=== PATIENT | male | born 1935 | race Caucasian/White ===

== ENCOUNTER 2016-12-23 15:28 | Inpatient (IN) ==
[2016-12-23] MEDS ORDERED: Nitroglycerin 0.4 MG TAB.SUBL SL PRN (16:59)
[2016-12-23] MEDS ORDERED: Ipratropium/Albuterol Neb 3 ML IH PRN (16:59)
[2016-12-23] MEDS: Acetaminophen 325 MG TABLET PO PRN ×2 (18:44→23:38)
[2016-12-23] MEDS: Isosorbide MONOnitrate (24 HR) 30 MG TAB.ER.24H PO SCH (20:50)
[2016-12-23] MEDS ORDERED: Levofloxacin 750 MG/150 ML 750 MG/150 ML BAG IVPB SCH (21:00)
[2016-12-23] MEDS ORDERED: NON-FORMULARY MEDICATION 1 EACH EACH (Levofloxacin 750 Mg/150 Ml 750 MG) IVPB SCH (21:00)
[2016-12-24] MEDS: Acetaminophen 325 MG TABLET PO PRN (06:00)
[2016-12-24 06:08] LABS: Basophils # 0.1 K/mcL (0.0-0.2); Basophils % 0.5 %; Eosinophils # 0.4 K/mcL (0.0-0.6); Eosinophils % 4.2 %; Hematocrit 38.7 % (37.5-50.1); Hemoglobin 12.6 g/dL (12.9-16.9); Immature Granulocytes % 0.6 % (0-4); Lymphocytes % 20.4 %; Mean Corpuscular HGB Conc 32.6 g/dL (31.6-35.5); Mean Corpuscular Hemoglobin 28.1 pg (28.0-33.3); Mean Corpuscular Volume 86.2 fL (83.0-100.0); Monocytes # 0.9 K/mcL (0.0-1.3); Monocytes % 9.1 %; Neutrophils # 6.4 K/mcL (1.6-8.9); Platelet Count 224 K/mcL (140-400); Red Blood Count 4.49 M/mcL (4.19-5.50); Segmented Neutrophils % 65.2 %
[2016-12-24 06:15] LABS: INR 1.1; Prothrombin Time 12.1 Seconds (9.4-12.1)
[2016-12-24 06:18] LABS: Activated Partial Thrombo Time 26.3 Seconds (26.0-36.0)
[2016-12-24 06:25] LABS: BUN/Creatinine Ratio 23 (6-26); Blood Urea Nitrogen 21 mg/dL (8-26); Calcium 9.6 mg/dL (8.6-10.8); Carbon Dioxide 27 mEq/L (19-29); Chloride 103 mEq/L (98-109); Glucose 104 mg/dL (70-99); Osmolality,Calculated 291 (280-300); Potassium 4.6 mEq/L (3.5-4.5); Sodium 139 mEq/L (136-145); eGFR For African Americans > 60 (> 60); eGFR For Non-African Americans > 60 (> 60)
[2016-12-24] MEDS: Metoprolol XL (24 HR) Succ 50 MG TAB.ER.24H PO SCH (10:14)
[2016-12-24] MEDS: Cyanocobalamin (B-12) 1,000 MCG TABLET PO SCH (10:14)
[2016-12-24] MEDS: Cholecalciferol (D-3) 1,000 UNIT TABLET PO SCH (10:14)
[2016-12-24] MEDS: Aspirin Enteric Coated 81 MG Tablet PO SCH (10:14)
--- NOTE | 2016-12-24 11:07 | Internal Med History&Physical ---
Date of Encounter: 12/24/16 Time of Encounter: 10:35 Assessment and Plan (1) Osteomyelitis Current visit: No Status: Acute Will continue with IV Levaquin and add lactobacillus. Will also add gabapentin for pain control and change Tylenol to scheduled Qualifiers: Osteomyelitis type: acute hematogenous Osteomyelitis location: foot Laterality: right Qualified Code(s): M86.071 - Acute hematogenous osteomyelitis, right ankle and foot (2) Anemia Current visit: Yes Status: Acute We will order anemia testing in a.m. Qualifiers: Anemia type: unspecified type Qualified Code(s): D64.9 - Anemia, unspecified (3) HTN (hypertension) Current visit: No Status: Chronic Continue Toprol and Zestril. Qualifiers: Hypertension type: essential hypertension Qualified Code(s): I10 - Essential (primary) hypertension Internal Medicine - H&P: HPI Chief complaint: Right foot ulcer/osteomyelitis Admitted From: Hospital to Hospital Transfer Plans for Post Hospital Care: Home History of present illness: Mr. Medina is a 81 year old male who was transferred to [facility] swing bed following a December 17 [facility] hospitalization for right foot ulcer. 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 There was high-grade complex partial tearing of the Achilles tendon insertion. He was seen by podiatry and infectious disease. Deep soft tissue culture showed no growth. He was initially given Zosyn but discharged on IV Levaquin to complete a 6 week course. He states he will only be at [facility] 3-5 days to have therapy to improve his walking ability and allow family to build a wheelchair ramp and install handicap accessories in the home. He will then return home and complete IV antibiotic course at home. 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 He had previous right foot surgery in 1992. Denies gout or other bone joint or muscle disorders. Past Med Surg Social Fam HX - Past Medical History Medical history: atrial fibrillation, diabetes, GERD, hyperlipidemia, hypertension, other Psychiatric history: no psych history - Past Surgical History Surgical History: cataract, coronary bypass (CABG), herniorrhaphy, orthopedic, other - Social History Smoking Status: Former smoker Smokeless Tobacco Status: Yes Alcohol use: occasionally Drug use: none - Family History Father Family Member Ethnicity: Non- Living Status: Hx Family Cancer: Yes Mother Family Member Ethnicity: Non- Living Status: Hx Family Respiratory Disorders: Yes (Emphysema) Hx Family Cancer: Yes (Breast) Brother Family Member Ethnicity: Non- Living Status: Hx Family Cardiac Disorders: Yes (CAD) Sister Family Member Ethnicity: Non- Living Status: Hx Family Cardiac Disorders: Yes (CAD) Hx Family Endocrine Disorder: Yes (DM) Internal Medicine - H&P: Meds Aspirin [Adult Low Dose Aspirin EC] 81 mg PO QAM 04/01/15 [History] Atorvastatin Calcium [Lipitor] 80 mg PO HS 04/01/15 [History] Clopidogrel [Plavix] 75 mg PO HS 04/01/15 [History] Isosorbide MONOnitrate (24 HR) [Imdur] 30 mg PO HS 04/01/15 [History] Lisinopril [Zestril] 10 mg PO HS 04/01/15 [History] Metformin HCl [Glucophage] 850 mg PO BID 04/01/15 [History] Nitroglycerin [Nitrostat] 0.4 mg SL Q5M PRN 04/01/15 [History] Cholecalciferol (Vitamin D3) [Vitamin D3] 1,000 unit PO QAM 04/16/15 [History] Metoprolol XL (24 HR) Succ [Toprol Xl] 50 mg PO DAILY 12/17/16 [History] Acetaminophen [Tylenol] 650 mg PO Q6HR PRN #30 tablet 12/22/16 [Rx] Calcium Carbonate [Tums] 500 mg PO QAM tab.chew 12/22/16 [Rx] Cyanocobalamin (B-12) [Vitamin B12] 1,000 mcg PO QAM tablet 12/22/16 [Rx] Ipratropium/Albuterol Neb [Duoneb] 3 ml IH [id number] PRN #30 inhsol 12/22/16 [Rx] Levofloxacin 750 MG/150 ML [Levaquin Premix 750mg/150 mL] 750 mg IVPB DAILY 20 Days #20 bag 12/22/16 [Rx] 3 Allergy/AdvReac Type Severity Reaction Status Date / Time hydrocodone [From [place]] AdvReac Vomiting Verified 12/17/16 12:26 Oxycodone AdvReac Vomiting Verified 12/17/16 12:26 All Systems PM: A 10-system review of systems was performed and is negative for pertinent findings except as documented above in the HPI. Review of systems: Gen.: He states his weight has been stable the past few months Cardiovascular: He has history of hypertension. He has known ASHD status post GA 2003 followed by three-vessel CABG surgery. He has had 4 heart caths with most recent one February 2015. He has had 2 stents placed. An echocardiogram showed LVEF of 50-55%. There was mild diastolic dysfunction with E/A ratio 0.7. There was LAE at 4.70 cm. There was increased thickness of the interventricular septum and posterior wall at 1.90 and 1.40 cm respectively. There was with estimated aortic valve area 1.40 cm. He has history of atrial fibrillation but was in sinus rhythm on 12/20/2016 EKG. There is no history of DVT or pulmonary embolus Respiratory: He smoked between age [age] approximately 36 years up to 1 pack per day. He has a diagnosis of COPD but does not use home oxygen. GI: He denies disorders of his liver gallbladder or exocrine pancreas. He has had abdominal surgery with mesh placement. : He has had kidney stones on 2 occasions in the past. He had acute renal insufficiency during his recent [facility] stay. He denies chronic kidney disease or other disorders of his kidney bladder or prostate Neurologic: He denies large distribution strokes or seizures. Endocrine: He was diagnosed with DM 2 in 2003. He has hyperlipidemia but denies thyroid disease. Hematology/oncology: He has anemia but was unaware of this. He denies internal malignancies. Psychiatric: He has feelings of depression but does not take medication at this time. Musk skeletal: As per history of present illness - Constitutional Vitals: Temp Pulse Resp BP Pulse Ox 97.8 F 94 18 167/92 95 12/24/16 07:00 12/24/16 07:00 12/24/16 07:00 12/24/16 07:00 12/24/16 07:00 Exam: Gen.: He is a well-developed well-nourished male lying in bed who appears in no acute distress HEENT: Head is atraumatic and normocephalic. Eyes: EOMI. There is no scleral icterus. Mouth: Mucosa is moist. Neck: Supple and nontender. There is no thyromegaly or adenopathy noted. Heart: Regular without murmurs gallops or ectopics. Lungs: No wheezes or crackles are heard. Abdomen: Soft and nontender. No masses or guarding are noted. Extremities: There is no cyanosis edema or clubbing noted. The right foot is wrapped in gauze which I did not unwrap. There is no edema of his lower legs. Neurologic: Mental status: He is talkative and a good historian. Cranial nerves : Smile is symmetric. Forehead wrinkles bilaterally. Tongue protrudes midline. EOMI. Motor: There is no pronator drift. Cerebellar: Finger to nose is intact bilaterally. Skin: Warm and dry. He has seborrheic dermatitis of his face Internal Med - H&P Results - Labs CBC & Chem 7: 12/24/16 04:20 12/24/16 04:20 Labs: Short CBC 12/24/16 Range/Units 04:20 WBC 9.8 (4.3-11.1) K/mcL Hgb 12.6 L (12.9-16.9) g/dL Hct 38.7 (37.5-50.1) % Plt Count 224 (140-400) K/mcL Neutrophils # 6.4 (1.6-8.9) K/mcL BMP 12/24/16 04:20 Sodium 139 Potassium 4.6 H Chloride 103 Carbon Dioxide 27 BUN 21 Creatinine 0.91 Glucose 104 H Calcium 9.6
[2016-12-24] MEDS: Gabapentin 100 MG CAPSULE PO SCH ×2 (15:20→20:43)
[2016-12-24] MEDS: Levofloxacin 750 MG/150 ML 750 MG/150 ML BAG IVPB SCH (20:40)
[2016-12-24] MEDS: Isosorbide MONOnitrate (24 HR) 30 MG TAB.ER.24H PO SCH (20:43)
[2016-12-24] MEDS: Lactobacillus 1 EACH CAP.SPRINK PO SCH (20:44)
[2016-12-25] MEDS: *HR* Metformin 850 MG TABLET PO SCH ×3 (03:32→20:41)
[2016-12-25] MEDS: Lactobacillus 1 EACH CAP.SPRINK PO SCH ×2 (09:43→20:40)
[2016-12-25] MEDS: Cholecalciferol (D-3) 1,000 UNIT TABLET PO SCH (09:43)
[2016-12-25] MEDS: Gabapentin 100 MG CAPSULE PO SCH ×3 (09:44→20:41)
[2016-12-25] MEDS: Aspirin Enteric Coated 81 MG Tablet PO SCH (09:44)
[2016-12-25] MEDS: Metoprolol XL (24 HR) Succ 50 MG TAB.ER.24H PO SCH (09:44)
[2016-12-25] MEDS: Cyanocobalamin (B-12) 1,000 MCG TABLET PO SCH (09:44)
[2016-12-25 11:11] LABS: % Iron Saturation 29 % (20-55); Iron 84 mcg/dL (65-175); Transferrin 206 mg/dL (174-364)
[2016-12-25 11:33] LABS: Ferritin 43 ng/ml (22-275)
[2016-12-25 11:46] LABS: Folate 6.6 ng/mL (7.0-31.4)
[2016-12-25] MEDS: Isosorbide MONOnitrate (24 HR) 30 MG TAB.ER.24H PO SCH (20:39)
[2016-12-25] MEDS: Levofloxacin 750 MG/150 ML 750 MG/150 ML BAG IVPB SCH (20:41)
[2016-12-26] MEDS: Lactobacillus 1 EACH CAP.SPRINK PO SCH ×2 (09:09→22:08)
[2016-12-26] MEDS: Aspirin Enteric Coated 81 MG Tablet PO SCH (09:09)
[2016-12-26] MEDS: *HR* Metformin 850 MG TABLET PO SCH ×2 (09:09→22:13)
[2016-12-26] MEDS: Gabapentin 100 MG CAPSULE PO SCH ×3 (09:09→22:07)
[2016-12-26] MEDS: Metoprolol XL (24 HR) Succ 50 MG TAB.ER.24H PO SCH (09:10)
[2016-12-26] MEDS: Cyanocobalamin (B-12) 1,000 MCG TABLET PO SCH (09:10)
[2016-12-26] MEDS: Cholecalciferol (D-3) 1,000 UNIT TABLET PO SCH (09:10)
--- NOTE | 2016-12-26 11:26 | Internal Med Progress Note ---
Date of Encounter: 12/26/16 Time of Encounter: 11:15 - Assessment and plan (1) Osteomyelitis Current Visit: No Status: Acute Assessment and plan: December 26. Continue IV Levaquin and lactobacillus. Continue gabapentin and Tylenol for pain control. Qualifiers: Osteomyelitis type: acute hematogenous Osteomyelitis location: foot Laterality: right Qualified Code(s): M86.071 - Acute hematogenous osteomyelitis, right ankle and foot (2) Anemia Current Visit: Yes Status: Acute Assessment and plan: December 26. Folate level was minimally low at 6.6. Will add folic acid supplement. Qualifiers: Anemia type: unspecified type Qualified Code(s): D64.9 - Anemia, unspecified (3) HTN (hypertension) Current Visit: No Status: Chronic Assessment and plan: December 26. Continue Toprol and Zestril. Qualifiers: Hypertension type: essential hypertension Qualified Code(s): I10 - Essential (primary) hypertension - Subjective Interval history: December 26. He has no new complaints and feels better overall. - Constitutional Vitals: Temp Pulse Resp BP Pulse Ox 97.6 F 85 18 115/67 95 12/26/16 07:16 12/26/16 07:16 12/26/16 07:16 12/26/16 07:16 12/26/16 07:16 Exam: He is resting comfortably in a chair at bedside. His affect is bright and cheerful. I reviewed his medications and lab results. Internal Medicine: Result - Labs CBC & Chem 7: 12/24/16 04:20 12/24/16 04:20 - ABG Interpretation ABG results: PT/INR, D-dimer PT 12.1 Seconds (9.4-12.1) 12/24/16 04:20 Consult Discharge Plan - Plan Referrals: Christiano Hopkins DO [Primary Care Provider] - 1 week
[2016-12-26] MEDS: Isosorbide MONOnitrate (24 HR) 30 MG TAB.ER.24H PO SCH (22:07)
[2016-12-26] MEDS: Levofloxacin 750 MG/150 ML 750 MG/150 ML BAG IVPB SCH (22:09)
[2016-12-27 05:38] LABS: Basophils # 0.1 K/mcL (0.0-0.2); Basophils % 0.4 %; Eosinophils # 0.6 K/mcL (0.0-0.6); Hematocrit 38.9 % (37.5-50.1); Hemoglobin 12.6 g/dL (12.9-16.9); Lymphocytes # 3.1 K/mcL (0.6-4.6); Lymphocytes % 24.7 %; Mean Corpuscular HGB Conc 32.4 g/dL (31.6-35.5); Mean Corpuscular Hemoglobin 27.9 pg (28.0-33.3); Mean Corpuscular Volume 86.3 fL (83.0-100.0); Mean Platelet Volume 10.9 fL (9.4-12.4); Monocytes % 7.7 %; Neutrophils # 7.8 K/mcL (1.6-8.9); Platelet Count 254 K/mcL (140-400); Red Blood Count 4.51 M/mcL (4.19-5.50); Red Cell Distribution Width 14.2 % (11.5-14.5); Segmented Neutrophils % 61.2 %
[2016-12-27 05:49] LABS: Blood Urea Nitrogen 27 mg/dL (8-26)
[2016-12-27 05:50] LABS: Creatine Kinase 71 Units/L (30-200)
[2016-12-27] MEDS: Gabapentin 100 MG CAPSULE PO SCH ×3 (10:20→22:14)
[2016-12-27] MEDS: Aspirin Enteric Coated 81 MG Tablet PO SCH (10:20)
[2016-12-27] MEDS: Cyanocobalamin (B-12) 1,000 MCG TABLET PO SCH (10:20)
[2016-12-27] MEDS: *HR* Metformin 850 MG TABLET PO SCH ×2 (10:20→22:17)
[2016-12-27] MEDS: Lactobacillus 1 EACH CAP.SPRINK PO SCH ×2 (10:20→22:14)
[2016-12-27] MEDS: Metoprolol XL (24 HR) Succ 50 MG TAB.ER.24H PO SCH (10:20)
[2016-12-27] MEDS: Cholecalciferol (D-3) 1,000 UNIT TABLET PO SCH (10:20)
[2016-12-27 11:43] LABS: C-Reactive Protein 6 mg/L (Less than 5)
--- NOTE | 2016-12-27 16:02 | Internal Med Progress Note ---
Date of Encounter: 12/27/16 Time of Encounter: 15:50 - Assessment and plan (1) Osteomyelitis Current Visit: No Status: Acute Assessment and plan: December 26. Continue IV Levaquin and lactobacillus. Continue gabapentin and Tylenol for pain control. December 27. Continue IV Levaquin to complete 6 week course in Hospital. Continue gabapentin and Tylenol. Qualifiers: Osteomyelitis type: acute hematogenous Osteomyelitis location: foot Laterality: right Qualified Code(s): M86.071 - Acute hematogenous osteomyelitis, right ankle and foot (2) Anemia Current Visit: Yes Status: Acute Assessment and plan: December 26. Folate level was minimally low at 6.6. Will add folic acid supplement. Qualifiers: Anemia type: unspecified type Qualified Code(s): D64.9 - Anemia, unspecified (3) HTN (hypertension) Current Visit: No Status: Chronic Assessment and plan: December 26. Continue Toprol and Zestril. Qualifiers: Hypertension type: essential hypertension Qualified Code(s): I10 - Essential (primary) hypertension - Subjective Interval history: December 26. He has no new complaints and feels better overall. December 27. He has no new complaints - Constitutional Vitals: Temp Pulse Resp BP Pulse Ox 97.8 F 96 16 111/72 99 12/27/16 06:37 12/27/16 06:37 12/27/16 06:37 12/27/16 06:37 12/27/16 13:58 Exam: He is sitting in a chair at bedside resting comfortably. His right calcaneal area shows an unstageable 0.6 cm x 3.2 cm skin defect. There is no surrounding erythema and no significant drainage. I reviewed his medications and lab results Internal Medicine: Result - Labs CBC & Chem 7: 12/27/16 05:25 12/27/16 05:25 Labs: Short CBC 12/27/16 Range/Units 05:25 WBC 12.7 H (4.3-11.1) K/mcL Hgb 12.6 L (12.9-16.9) g/dL Hct 38.9 (37.5-50.1) % Plt Count 254 (140-400) K/mcL Neutrophils # 7.8 (1.6-8.9) K/mcL BMP 12/27/16 05:25 BUN 27 H - ABG Interpretation ABG results: PT/INR, D-dimer PT 12.1 Seconds (9.4-12.1) 12/24/16 04:20 Consult Discharge Plan - Plan Referrals: Christiano Hopkins DO [Primary Care Provider] - 1 week
[2016-12-27] MEDS: Isosorbide MONOnitrate (24 HR) 30 MG TAB.ER.24H PO SCH (22:15)
[2016-12-27] MEDS: Levofloxacin 750 MG/150 ML 750 MG/150 ML BAG IVPB SCH (22:16)
[2016-12-28] MEDS: Gabapentin 100 MG CAPSULE PO SCH ×3 (16:02→22:16)
[2016-12-28] MEDS: Lactobacillus 1 EACH CAP.SPRINK PO SCH ×2 (16:03→22:13)
[2016-12-28] MEDS: Aspirin Enteric Coated 81 MG Tablet PO SCH (16:03)
[2016-12-28] MEDS: Folic Acid 1 MG TABLET PO SCH (16:04)
[2016-12-28] MEDS: *HR* Metformin 850 MG TABLET PO SCH (16:04)
[2016-12-28] MEDS: Metoprolol XL (24 HR) Succ 50 MG TAB.ER.24H PO SCH (16:05)
[2016-12-28] MEDS: Cholecalciferol (D-3) 1,000 UNIT TABLET PO SCH (16:06)
[2016-12-28] MEDS: Cyanocobalamin (B-12) 1,000 MCG TABLET PO SCH (16:06)
[2016-12-28] MEDS: traMADol 50 MG TABLET PO PRN ×2 (16:10→22:14)
[2016-12-28] MEDS: Levofloxacin 750 MG/150 ML 750 MG/150 ML BAG IVPB SCH (22:12)
[2016-12-28] MEDS: Isosorbide MONOnitrate (24 HR) 30 MG TAB.ER.24H PO SCH (22:15)
[2016-12-29] MEDS: *HR* Metformin 850 MG TABLET PO SCH ×3 (06:41→20:15)
[2016-12-29] MEDS: Lactobacillus 1 EACH CAP.SPRINK PO SCH ×2 (10:00→20:10)
[2016-12-29] MEDS: Folic Acid 1 MG TABLET PO SCH (10:00)
[2016-12-29] MEDS: Aspirin Enteric Coated 81 MG Tablet PO SCH (10:00)
[2016-12-29] MEDS: Metoprolol XL (24 HR) Succ 50 MG TAB.ER.24H PO SCH (10:01)
[2016-12-29] MEDS: Gabapentin 100 MG CAPSULE PO SCH ×2 (10:01→15:15)
[2016-12-29] MEDS: Cholecalciferol (D-3) 1,000 UNIT TABLET PO SCH (10:01)
[2016-12-29] MEDS: Cyanocobalamin (B-12) 1,000 MCG TABLET PO SCH (10:01)
[2016-12-29] MEDS ORDERED: *HR* Dextrose 50 % in Water (Syg) 50 ML SYRINGE IVP PRN (11:11)
[2016-12-29] MEDS ORDERED: Dextrose Gel 15 GM PO PRN ×2 (11:11)
[2016-12-29] MEDS ORDERED: D5% in Water 1,000 ML IVC PRN (11:11)
[2016-12-29] MEDS: Insulin LISPRO 300 UNITS/3 ML VIAL SQ SCH ×3 (12:36→20:17)
[2016-12-29] MEDS: Isosorbide MONOnitrate (24 HR) 30 MG TAB.ER.24H PO SCH (20:16)
[2016-12-29] MEDS ORDERED: levoFLOXacin 500 MG TABLET PO SCH (21:00)
[2016-12-29] MEDS ORDERED: Insulin LISPRO 300 UNITS/3 ML VIAL SQ SCH (21:00)
[2016-12-29] MEDS: Levofloxacin 750 MG/150 ML 750 MG/150 ML BAG IVPB SCH (21:37)
[2016-12-30] MEDS: Insulin LISPRO 300 UNITS/3 ML VIAL SQ SCH ×4 (07:46→20:51)
[2016-12-30] MEDS: Metoprolol XL (24 HR) Succ 50 MG TAB.ER.24H PO SCH (08:41)
[2016-12-30] MEDS: Aspirin Enteric Coated 81 MG Tablet PO SCH (08:42)
[2016-12-30] MEDS: Lactobacillus 1 EACH CAP.SPRINK PO SCH ×2 (08:42→20:50)
[2016-12-30] MEDS: Cyanocobalamin (B-12) 1,000 MCG TABLET PO SCH (08:43)
[2016-12-30] MEDS: Folic Acid 1 MG TABLET PO SCH (08:43)
[2016-12-30] MEDS: Cholecalciferol (D-3) 1,000 UNIT TABLET PO SCH (08:43)
[2016-12-30] MEDS: *HR* Metformin 850 MG TABLET PO SCH ×2 (08:45→20:55)
[2016-12-30] MEDS ORDERED: Ondansetron ODT 4 MG TAB.RAPDIS SL PRN (14:32)
--- NOTE | 2016-12-30 16:41 | Internal Med Progress Note ---
Date of Encounter: 12/30/16 Time of Encounter: 16:32 - Assessment and plan (1) Osteomyelitis Current Visit: No Status: Acute Assessment and plan: December 26. Continue IV Levaquin and lactobacillus. Continue gabapentin and Tylenol for pain control. December 27. Continue IV Levaquin to complete 6 week course in Hospital. Continue gabapentin and Tylenol. Qualifiers: Osteomyelitis type: acute hematogenous Osteomyelitis location: foot Laterality: right Qualified Code(s): M86.071 - Acute hematogenous osteomyelitis, right ankle and foot (2) Anemia Current Visit: Yes Status: Acute Assessment and plan: December 26. Folate level was minimally low at 6.6. Will add folic acid supplement. Qualifiers: Anemia type: unspecified type Qualified Code(s): D64.9 - Anemia, unspecified (3) HTN (hypertension) Current Visit: No Status: Chronic Assessment and plan: December 26. Continue Toprol and Zestril. Qualifiers: Hypertension type: essential hypertension Qualified Code(s): I10 - Essential (primary) hypertension - Subjective Interval history: December 26. He has no new complaints and feels better overall. December 27. He has no new complaints December 30. He has no new complaints - Constitutional Vitals: Temp Pulse Resp BP Pulse Ox 98.5 F 82 16 107/53 97 12/30/16 07:07 12/30/16 07:07 12/30/16 07:07 12/30/16 07:07 12/30/16 08:00 Exam: He is sitting in a chair at bedside resting comfortably. His affect is bright and cheerful. His right foot is wrapped in gauze which I did not remove. He showed me a picture of the postsurgical wound from the December 28 surgery. I reviewed his medications and lab results. Internal Medicine: Result - Labs CBC & Chem 7: 12/27/16 05:25 12/27/16 05:25 - ABG Interpretation ABG results: PT/INR, D-dimer PT 12.1 Seconds (9.4-12.1) 12/24/16 04:20 Consult Discharge Plan - Plan Referrals: Christiano Hopkins DO [Primary Care Provider] - 1 week
[2016-12-30] MEDS: Isosorbide MONOnitrate (24 HR) 30 MG TAB.ER.24H PO SCH (20:50)
[2016-12-30] MEDS: Levofloxacin 750 MG/150 ML 750 MG/150 ML BAG IVPB SCH (20:55)
[2016-12-31] MEDS: Aspirin Enteric Coated 81 MG Tablet PO SCH (09:36)
[2016-12-31] MEDS: Folic Acid 1 MG TABLET PO SCH (09:36)
[2016-12-31] MEDS: *HR* Metformin 850 MG TABLET PO SCH ×2 (09:36→17:52)
[2016-12-31] MEDS: Metoprolol XL (24 HR) Succ 50 MG TAB.ER.24H PO SCH (09:36)
[2016-12-31] MEDS: Cyanocobalamin (B-12) 1,000 MCG TABLET PO SCH (09:36)
[2016-12-31] MEDS: Insulin LISPRO 300 UNITS/3 ML VIAL SQ SCH ×4 (09:36→19:45)
[2016-12-31] MEDS: Cholecalciferol (D-3) 1,000 UNIT TABLET PO SCH (09:36)
[2016-12-31] MEDS: Lactobacillus 1 EACH CAP.SPRINK PO SCH ×2 (09:36→19:44)
--- NOTE | 2016-12-31 11:03 | Internal Med Progress Note ---
Date of Encounter: 12/31/16 Time of Encounter: 10:40 - Assessment and plan (1) Osteomyelitis Current Visit: No Status: Acute Assessment and plan: December 26. Continue IV Levaquin and lactobacillus. Continue gabapentin and Tylenol for pain control. December 27. Continue IV Levaquin to complete 6 week course in Hospital. Continue gabapentin and Tylenol. December 31. Continue IV Levaquin. He will be discharged tomorrow morning after completing IV antibiotic infusion and dressing change and will start outpatient IV therapy 01/02/2017 to complete the 6 week course. Continue gabapentin and Tylenol. Qualifiers: Osteomyelitis type: acute hematogenous Osteomyelitis location: foot Laterality: right Qualified Code(s): M86.071 - Acute hematogenous osteomyelitis, right ankle and foot (2) Anemia Current Visit: Yes Status: Acute Assessment and plan: December 26. Folate level was minimally low at 6.6. Will add folic acid supplement. Qualifiers: Anemia type: unspecified type Qualified Code(s): D64.9 - Anemia, unspecified (3) HTN (hypertension) Current Visit: No Status: Chronic Assessment and plan: December 26. Continue Toprol and Zestril. Qualifiers: Hypertension type: essential hypertension Qualified Code(s): I10 - Essential (primary) hypertension - Subjective Interval history: December 26. He has no new complaints and feels better overall. December 27. He has no new complaints December 30. He has no new complaints December 31. He has no new complaints and wishes to go home. He is agreeable to return daily to [facility] for outpatient IV infusion and dressing changes 4 weeks since IV antibiotic infusions are not available through home health services. - Constitutional Vitals: Temp Pulse Resp BP Pulse Ox 98.4 F 93 18 154/77 95 12/31/16 07:15 12/31/16 07:15 12/31/16 07:15 12/31/16 07:15 12/31/16 07:15 Exam: He is sitting in a chair at bedside resting comfortably. His right foot is elevated on his bedside tray table. The right foot is wrapped in gauze which I did not unwrap. I reviewed his medications and lab results. Internal Medicine: Result - Labs CBC & Chem 7: 12/27/16 05:25 12/27/16 05:25 - ABG Interpretation ABG results: PT/INR, D-dimer PT 12.1 Seconds (9.4-12.1) 12/24/16 04:20 Consult Discharge Plan - Plan Referrals: Christiano Hopkins DO [Primary Care Provider] - 1 week
[2016-12-31] MEDS: Levofloxacin 750 MG/150 ML 750 MG/150 ML BAG IVPB SCH (12:15)
[2016-12-31] MEDS: Isosorbide MONOnitrate (24 HR) 30 MG TAB.ER.24H PO SCH (19:45)
[2017-01-01 07:03] VITALS: BP 148/72
--- NOTE | 2017-01-01 09:13 | Discharge Summary ---
Date of Encounter: 01/01/17 Time of Encounter: 09:00 - Discharge Diagnosis (1) Osteomyelitis Priority: Primary Status: Acute Qualifiers: Osteomyelitis type: acute hematogenous Osteomyelitis location: foot Laterality: right Qualified Code(s): M86.071 - Acute hematogenous osteomyelitis, right ankle and foot (2) Anemia Priority: Secondary Status: Acute Qualifiers: Anemia type: unspecified type Qualified Code(s): D64.9 - Anemia, unspecified (3) HTN (hypertension) Priority: Secondary Status: Chronic Qualifiers: Hypertension type: essential hypertension Qualified Code(s): I10 - Essential (primary) hypertension - Discharge Medications Home Medications: Aspirin [Adult Low Dose Aspirin EC] 81 mg PO QAM 04/01/15 [History] Atorvastatin Calcium [Lipitor] 80 mg PO HS 04/01/15 [History] Clopidogrel [Plavix] 75 mg PO HS 04/01/15 [History] Isosorbide MONOnitrate (24 HR) [Imdur] 30 mg PO HS 04/01/15 [History] Lisinopril [Zestril] 10 mg PO HS 04/01/15 [History] Metformin HCl [Glucophage] 850 mg PO BID 04/01/15 [History] Nitroglycerin [Nitrostat] 0.4 mg SL Q5M PRN 04/01/15 [History] Cholecalciferol (Vitamin D3) [Vitamin D3] 1,000 unit PO QAM 04/16/15 [History] Metoprolol XL (24 HR) Succ [Toprol Xl] 50 mg PO DAILY 12/17/16 [History] Acetaminophen [Tylenol] 650 mg PO Q6HR PRN #30 tablet 12/22/16 [Rx] Calcium Carbonate [Tums] 500 mg PO QAM tab.chew 12/22/16 [Rx] Cyanocobalamin (B-12) [Vitamin B12] 1,000 mcg PO QAM tablet 12/22/16 [Rx] Ipratropium/Albuterol Neb [Duoneb] 3 ml IH [id number] PRN #30 inhsol 12/22/16 [Rx] Levofloxacin 750 MG/150 ML [Levaquin Premix 750mg/150 mL] 750 mg IVPB DAILY 20 Days #20 bag 12/22/16 [Rx] Allergies/Adverse Reactions: 3 Allergy/AdvReac Type Severity Reaction Status Date / Time hydrocodone [From [place]] AdvReac Vomiting Verified 12/28/16 09:28 Oxycodone AdvReac Vomiting Verified 12/28/16 09:28 Date of admission: 12/23/16 16:31 Primary care physician: Christiano Hopkins DO Consults: 12/23/16 16:46 Consult to Occupational Therapy [CONS] Routine Comment: eval, develop, and implement plan of care Reason for Consult: eval, develop, and implement plan of care Consult to Physical Therapy [CONS] Routine Comment: eval, develop, and implement plan of care Reason for Consult: eval, develop, and implement plan of care Consult to Radiological Metallurgist [CONS] Routine Reason for SW Consult: possible HH services - Patient Status Disposition: Home, Self-Care Overall status at discharge: patient is progressing back to baseline - Discharge Instructions Follow Up With: Christiano Hopkins DO [Primary Care Provider] - 1 week - Diet and Activity Activity: resume usual activities as tolerated Diet: advance to your usual diet Hospital course: Mr. Medina is a 81 year old male who was transferred to [facility] swing bed following a December 17 [facility] hospitalization for right foot ulcer. 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 There was high-grade complex partial tearing of the Achilles tendon insertion. He was seen by podiatry and infectious disease. Deep soft tissue culture showed no growth. He was initially given Zosyn but discharged on IV Levaquin to complete a 6 week course. He states he will only be at [facility] 3-5 days to have therapy to improve his walking ability and allow family to build a wheelchair ramp and install handicap accessories in the home. He will then return home and complete IV antibiotic course at home. Initial orders were written by the discharging physicians at [facility]. I saw him December 24 and performed the swing bed history and physical. He was continued on IV Levaquin with lactobacillus. Tylenol was used for pain control. He saw Dr. Love during his swing bed stay and had wound debridement done. He will continue with IV Levaquin to complete a 6 week course. He wished to be discharged home and come to [facility] as a series patient for daily IV infusions. This was arranged. He will have daily dressing changes done during his time of daily antibiotic infusion. He will follow with his PCP Dr. Christiano Hopkins within 1 week. - Time Spent with Patient Total time spent providing and/or coordinating discharge services: - Constitutional Vitals: Temp Pulse Resp BP Pulse Ox 97.7 F 85 17 148/72 95 01/01/17 06:05 01/01/17 06:05 01/01/17 06:05 01/01/17 06:05 01/01/17 06:05
[2017-01-01] MEDS: Cyanocobalamin (B-12) 1,000 MCG TABLET PO SCH (11:43)
[2017-01-01] MEDS: Lactobacillus 1 EACH CAP.SPRINK PO SCH (11:43)
[2017-01-01] MEDS: Aspirin Enteric Coated 81 MG Tablet PO SCH (11:45)
[2017-01-01] MEDS: Insulin LISPRO 300 UNITS/3 ML VIAL SQ SCH (11:45)
[2017-01-01] MEDS: Folic Acid 1 MG TABLET PO SCH (11:45)
[2017-01-01] MEDS: *HR* Metformin 850 MG TABLET PO SCH (11:45)
[2017-01-01] MEDS: Levofloxacin 750 MG/150 ML 750 MG/150 ML BAG IVPB SCH (11:46)
[2017-01-01] MEDS: Metoprolol XL (24 HR) Succ 50 MG TAB.ER.24H PO SCH (11:46)
[2017-01-01] MEDS: Cholecalciferol (D-3) 1,000 UNIT TABLET PO SCH (11:46)
== END 2017-01-01 14:06 | disposition home or self-care (01) | DRG 638 ==
LOC: INPPIK 16:31
PROVIDERS: ADMIT Internal Medicine; ATTEND Internal Medicine